=== PATIENT | female | born 1960 | race Caucasian/White ===

== ENCOUNTER 2021-05-11 07:42 | Day surgery (SDC) | payer OTHER, SELFPAY | END 2021-05-11 11:25 | disposition home or self-care (01) | LOC: MOR 07:42 → MMU 07:43 → MOR 11:25 | PROVIDERS: ATTEND Internal Medicine Gastroenterology | DX: Z11.59 Encounter for screening for other viral diseases (principal); Z20.822 Contact with and (suspected) exposure to COVID-19; Z53.8 Procedure and treatment not carried out for other reasons ==